=== PATIENT | male | born 1960 | race Hispanic/Latino ===

== ENCOUNTER → 2024-08-02 | Outpatient (CLI) | payer BC ==
[~2024-08-02] MED LIST: AEC81 PO; ASCO100031 PO; CHOL100046 PO; FISH1CAP49 PO; IOHEXOL 350 MG/ML 100ML INFUS..BTL IV ONE; ROSU10TA22 PO; VITAMIN B12 PO
== END | disposition home or self-care (01) ==
LOC: RAH 07:34
PROVIDERS: ATTEND Internal Medicine Cardiovascular Disease
DX: R06.02 Shortness of breath (principal)
CPT/HCPCS: 75574; Q9967